=== PATIENT | female | born 1995 | race Caucasian/White ===

== ENCOUNTER 2018-07-07 14:58 | Emergency (ER) | payer BC ==
[2018-07-07 15:48] LABS: #Eosinphils 0.1 thou/uL (0.0-0.7); #Lymphocytes 1.8 thou/uL (1.20-3.40); #Monocytes 0.4 thou/uL (0.11-0.59); #Neutrophils 3.7 thou/uL (1.40-6.50); %Basophils 0.5 % (0.0-1.0); %Eosinophils 0.9 % (0.0-10.0); %Lymphocytes 30.6 % (21.0-51.0); Hemoglobin 14.6 g/dL (12.0-16.0); Mean Corpuscular HGB CONC 32.8 g/dL (32.0-36.0); Mean Corpuscular Hemoglobin 29.7 pg (27.0-31.0); Mean Corpuscular Volume 90.5 fL (78.0-98.0); Mean Platelet Volume 8.9 fL (7.4-10.4); Platelet Count 233 thou/uL (130-400); RBC Distribution Width 11.4 % (11.5-14.5); Red Blood Cell (RBC) Count 4.92 mill/uL (4.20-5.40)
[2018-07-07 16:06] LABS: Bilirubin Small (Negative); Blood, Urine Moderate (Negative); Clarity CLEAR (Clear); Glucose, Urine (Dipstick) Negative (Negative); Leukocyte Small (Negative); Nitrite Negative (Negative); Protein, Urine (Dipstick) Negative (Neg-Trace); Specific Gravity, Urine 1.022 (1.002-1.036)
[2018-07-07 16:08] LABS: Bacteria/HPF None Seen HPF (None Seen); Hyaline Casts/LPF 0-3 HYALINE CAST LPF (0-3 Hyaline); Pathc Cast-AUWi Flag 0.58 (0-2.49); Squamous Epithelial 0-3 HPF (0-3)
[2018-07-07 16:10] LABS: Pregnancy Test - Urine (BHCG) Negative (Negative); Pregu Control Background? CLEAR/WHITE (CLR/WHITE); Pregu Control Bar Appear? YES (CONTROL BAR); Specific Gravity 1.022 (1.002-1.036)
[2018-07-07 16:10] LABS: ALT (SGPT) 19 U/L (8-55); AST (SGOT) 12 U/L (5-34); Albumin 4.2 g/dL (3.5-5.0); Alkaline Phosphatase 40 U/L (40-150); Anion Gap 11 mmol/L (10-20); BUN (Urea Nitrogen) 11 mg/dL (7.0-18.7); Calc. Creatinine Clearance 0 mL/min (70-130); Calcium 9.6 mg/dL (7.8-10.44); Carbon Dioxide 25 mmol/L (22-29); Chloride 106 mmol/L (98-107); Estimated GFR-MDRD Greater than 90; Glucose 92 mg/dL (70-105); Potassium 4.4 mmol/L (3.5-5.1); Protein, Total 7.2 g/dL (6.0-8.3); Sodium 138 mmol/L (136-145)
[2018-07-07 16:21] LABS: RBC/HPF 0-3 HPF (0-3)
--- NOTE | 2018-07-07 17:52 | RAD ---
PORTABLE AP CHEST: Date: 07/07/18 HISTORY: Altered mental status. Tachycardia. COMPARISON: None available. FINDINGS: The cardiac silhouette and pulmonary vasculature are within normal limits. The lungs are clear. [place] structures are intact. IMPRESSION: No acute cardiopulmonary process. POS: [facility]
--- NOTE | 2018-07-07 17:57 | CT ---
NONCONTRAST CT HEAD: Date: 07/07/18 HISTORY: Altered mental status and dizziness. FINDINGS: There is no evidence of a hemorrhage, acute infarction, mass effect, or midline shift. The ventricula r system is normal in size, shape, and position. The visualized paranasal sinuses and mastoid air alexei ls are clear. Calvarial structures have a normal appearance. IMPRESSION: No acute intracranial abnormality is demonstrated. POS: [facility]
== END 2018-07-07 18:55 | disposition home or self-care (01) ==
LOC: ERS 14:58
DX: H83.02 Labyrinthitis, left ear (principal); R42 Dizziness and giddiness
CPT/HCPCS: 36415; 70450; 71045; 80053; 81003; 81015; 81025; 82550; 85025; 93005